=== PATIENT | female | born 1945 | race Caucasian/White ===

== ENCOUNTER → 2016-12-19 | Outpatient (CLI) | payer OTHER ==
[~2016-12-19] MED LIST: ADVINUNK; ASPEC81 PO; FAMO20TA11 PO; FISHOIL PO; FLUT50SP14 NAE; FSM70 PO; MONT1TAB3 PO; NSP/1000 PO; TOPI25TA10 PO; VALA500T60 PO; VYT1010 PO; [UNRECOGNIZED DRUG - OTHER] PO
== END | disposition home or self-care (01) ==
LOC: C.RDSM 13:00
PROVIDERS: ATTEND Physical Medicine & Rehabilitation Sports Medicine
DX: M79.671 Pain in right foot (principal)

== ENCOUNTER → 2017-01-27 | Outpatient (CLI) | payer OTHER ==
--- NOTE | 2017-01-27 13:07 | MAMMOGRAPHY REPORT ---
BILATERAL DIGITAL SCREENING MAMMOGRAM WITH CAD: 01/27/2017 CLINICAL HISTORY: Routine screening. Patient has no complaints. TECHNIQUE: Bilateral CC, MLO and repeat left CC views were obtained. Current study was also evaluate d with a Computer Aided Detection (CAD) system. COMPARISON: Comparison is made to exams dated: 01/16/2016 mammogram, 01/12/2015 mammogram, 01/03/2014 ann[facility] mogram, 12/31/2012 mammogram, 12/31/2011 mammogram, and 12/27/2010 mammogram - [facility]. BREAST COMPOSITION: There are scattered areas of fibroglandular density in both breasts. FINDINGS: The parenchymal pattern is similar to prior exams. No new suspicious mass, architectural d istortion or cluster of microcalcifications is seen. IMPRESSION: ACR BI-RADS CATEGORY 1: NEGATIVE There is no mammographic evidence of malignancy. A 1 year screening mammogram is recommended. The pa tient will receive written notification of the results. Approximately 10% of breast cancers are not detected with mammography. A negative mammographic report should not delay biopsy if a clinically suggestive mass is present. Jenifer Abarca M.D. ay/:01/27/2017 12:15:50 Technical Applications Scientist: Yvonne BHANDARI(Dash)(Donna)(BD), [facility] letter sent: Normal 1/2 BI-RADS Code: ACR BI-RADS Category 1: Negative
== END | disposition home or self-care (01) ==
LOC: C.MAMM 11:02
PROVIDERS: ATTEND Obstetrics & Gynecology
DX: Z12.31 Encounter for screening mammogram for malignant neoplasm of breast (principal)

== ENCOUNTER → 2017-03-10 | Outpatient (CLI) | payer OTHER | END | disposition home or self-care (01) | LOC: C.PAPS 16:16 | PROVIDERS: ATTEND Obstetrics & Gynecology | DX: Z12.4 Encounter for screening for malignant neoplasm of cervix (principal) ==

== ENCOUNTER → 2017-04-10 | Outpatient (CLI) | payer OTHER | END | disposition home or self-care (01) | LOC: C.RDSM 10:00 | PROVIDERS: ATTEND Physical Medicine & Rehabilitation Sports Medicine | DX: M79.671 Pain in right foot (principal); M19.071 Primary osteoarthritis, right ankle and foot ==

== ENCOUNTER → 2017-06-25 | Outpatient (CLI) | payer OTHER ==
--- NOTE | 2017-06-25 12:46 | DIAGNOSTIC IMAGING REPORT ---
CHEST 2 VIEWS ROUTINE CLINICAL HISTORY: 71 years-old Female presenting with BRONCHITIS, COUGH. TECHNIQUE: PA and lateral views of the chest were obtained. COMPARISON: 03/18/2009. FINDINGS: Atherosclerosis of aortic arch. Cardiac silhouette normal in size. Lungs and pleural spaces clear. Osseous structures normal. Upper abdomen normal. IMPRESSION: 1. No acute cardiopulmonary disease. Electronically signed by: Keyshawn Lobo M.D. 06/25/2017 12:45 PM Dictated Date/Time: 06/25/2017 12:43 PM
== END | disposition home or self-care (01) ==
LOC: C.RADBC 12:26
PROVIDERS: ATTEND Neuromusculoskeletal Medicine & OMM
DX: J40 Bronchitis, not specified as acute or chronic (principal); R05 Cough

== ENCOUNTER → 2018-01-28 | Outpatient (CLI) | payer OTHER ==
[~2018-01-28] MED LIST changes: -NSP/1000 PO; +[UNRECOGNIZED DRUG - CODE] PO
--- NOTE | 2018-01-28 16:07 | MAMMOGRAPHY REPORT ---
BILATERAL DIGITAL SCREENING MAMMOGRAM TOMOSYNTHESIS WITH CAD: 01/28/2018 CLINICAL HISTORY: Routine screening. Patient has no complaints. TECHNIQUE: The study was acquired using full field digital technology and interpreted from soft copy. Breast tomosynthesis in addition to standard 2D mammography was performed. Current study was also ev aluated with a Computer Aided Detection (CAD) system. COMPARISON: Comparison is made to exams dated: 01/27/2017 mammogram, 01/16/2016 mammogram, 01/12/2015 annetta mogram, 01/03/2014 mammogram, 12/31/2012 mammogram, and 12/31/2011 mammogram - [facility]. BREAST COMPOSITION: There are scattered areas of fibroglandular density in both breasts. FINDINGS: No suspicious masses, calcifications, or areas of architectural distortion are noted in either breast . There has been no significant interval change compared to prior exams. IMPRESSION: ACR BI-RADS CATEGORY 1: NEGATIVE There is no mammographic evidence of malignancy. A 1 year screening mammogram is recommended.( 019) The patient will receive written notification of the results. Some breast cancers are not detected with mammography. A negative mammographic report should not nikunj y biopsy if a clinically suggestive mass is present. Fernanda Villegas M.D. ah/:01/28/2018 13:09:36 Facility Specialist: RT Makeda(R)(M), [facility] letter sent: Normal 1/2 BI-RADS Code: ACR BI-RADS Category 1: Negative
== END | disposition home or self-care (01) ==
LOC: C.MAMM 11:02
PROVIDERS: ATTEND Obstetrics & Gynecology
DX: Z12.31 Encounter for screening mammogram for malignant neoplasm of breast (principal)

== ENCOUNTER → 2018-02-10 | Outpatient (CLI) | payer OTHER | END | disposition home or self-care (01) | LOC: C.LABSPEC 13:42 | PROVIDERS: ATTEND Internal Medicine Pulmonary Disease | DX: R05 Cough (principal); E78.5 Hyperlipidemia, unspecified; G45.9 Transient cerebral ischemic attack, unspecified ==

== ENCOUNTER 2025-04-27 13:30 | Observation (INO) ==
[2025-04-27 14:22] LABS: Hematocrit (blood only) 39.3 % (37.0-47.0); Hemoglobin 14.2 g/dl (12.0-16.0); Mean Corpuscular Hemoglobin 30.5 pg (25.0-34.0); Mean Corpuscular Volume 84.3 fL (80.0-100.0); Platelet Count 277 K/uL (130-400); RDW Standard Deviation 34.9 fL (36.4-46.3); Red Blood Count 4.66 M/uL (4.20-5.40); White Blood Count 5.81 K/ul (4.8-10.8)
--- NOTE | 2025-04-27 14:35 | XRay Report ---
XR chest 1V not portable CLINICAL HISTORY: stroke alert COMPARISON STUDY: 02/18/2019 FINDINGS: Heart size and pulmonary vasculature are normal. No consolidation or pleural effusion. No p neumothorax. IMPRESSION: No acute findings. ACT 112: Negative or not required by law. Electronically signed by: Chidi Mendoza M.D. 04/27/2025 2:34 PM
[2025-04-27 14:41] LABS: Alanine Aminotransferase 18.0 U/L (7-52); Albumin Globulin Ratio 1.5 (0.9-2); Albumin Level 4.4 gm/dl (3.4-5.0); Alkaline Phosphatase 82.0 U/L (34-104); Anion Gap 5.0 (3-11); Bilirubin,Total 0.4 mg/dl (0.2-1.0); Blood Urea Nitrogen 11.0 mg/dl (6-23); Calcium 9.8 mg/dl (8.6-10.3); Carbon Dioxide 29.0 mmol/L (21-32); Chloride 106.0 mmol/L (98-107); Creatinine Clr Calc Pharmacy 52.5 ml/min; Globulin 2.9 gm/dl (2.5-4.0); Glucose 120.0 mg/dl (70-99(Fasting)); Magnesium 2.0 mg/dl (1.7-2.4); Potassium 4.1 mmol/L (3.5-5.1); Sodium 140.0 mmol/L (136-145); Total Protein 7.3 gm/dl (6.0-8.3)
[2025-04-27 14:50] LABS: INR 1.1 (0.9-1.1); Partial Thromboplastin Time 26 Seconds (21-31); Prothrombin Time 11.5 Seconds (9.0-12.0)
[2025-04-27] MEDS: OPTIRAY 320 125ml IV ONE (15:37)
--- NOTE | 2025-04-27 15:54 | CT Scan Report ---
CT ANGIOGRAM OF THE NECK CLINICAL HISTORY: Strokelike symptoms. COMPARISON STUDY: CT of the neck dated 02/02/2020 TECHNIQUE: Following the IV administration of 115 of Optiray 320, CT angiogram of the neck was perfor med from the aortic arch to the skull base. Images are reviewed in the axial, sagittal, and coronal p lanes. 3-D MIPS images are created and assessed. IV contrast was administered without complication. A ll measurements were calculated based on NASCET criteria. A dose lowering technique was utilized adh ering to the principles of ALARA. CT DOSE: 905.87 mGy.cm FINDINGS: Thoracic aorta: Visualized portions of the thoracic aorta are normal in caliber. The aortic arch demo nstrates 4-vessel variant anatomy. 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 Right carotid arterial system: The right common carotid artery is widely patent, as are the right int ernal and external carotid arteries. Left carotid arterial system: The left common carotid artery is widely patent, as are the left manager internal al and external carotid arteries. Vertebral arteries: Widely patent bilaterally and codominant. Subclavian arteries: Widely patent bilaterally. Intracranial vasculature: The visualized intracranial vessels at the skull base are patent. Jugular veins: Patent bilaterally. Brain parenchyma: The visualized brain parenchyma the skull base is within normal limits. Lung apices: Partially visualized upper lobe lung parenchyma appears clear. Soft tissues: The visualized pharyngeal soft tissues are normal in appearance noting angiographic pha se technique. The oropharyngeal airway appears widely patent. The salivary and thyroid glands are nor mal in appearance. No cervical lymphadenopathy is seen. Skeletal structures: The skeletal structures are osteopenic. The visualized calvarium at the skull ba se appears intact. The imaged cervical spine is maintained noting multilevel spondylosis. Sinuses and mastoids: The visualized paranasal sinuses are clear. The mastoid air cells are well pneu matized. IMPRESSION: 1. Unremarkable CT angiogram of the neck. 2. An aberrant right subclavian artery is incidentally noted. ACT 112: Negative or not required by law. Electronically signed by: Joey Israel M.D. 04/27/2025 3:53 PM
--- NOTE | 2025-04-27 15:55 | CT Scan Report ---
CT SCAN OF THE BRAIN WITHOUT IV CONTRAST CLINICAL HISTORY: Left-sided facial weakness. Extremity weakness. COMPARISON STUDY: MRI of the brain May 05, 2023. Sinus CT February 29, 2024. Head CT February 16 2. TECHNIQUE: Unenhanced axial CT scan of the brain was performed from the vertex to the skull base. A dose lowering technique was utilized adhering to the principles of ALARA. FINDINGS: Brain parenchyma: No acute intracranial hemorrhage, midline shift or mass effect is present. Mclean-whi te matter differentiation is preserved. There are no extra-axial fluid collections. There are no find ings to suggest acute dural sinus thrombosis or acute territorial infarct. Mild white matter hypodens ity suggests small vessel disease. Ventricles, sulci, cisterns: There is no hydrocephalus. Ventricular system is stable. The basal ciste rns are patent. Calvarium: Unremarkable. Sinuses and mastoids: The visualized paranasal sinuses are clear. The mastoid air cells are well pneu matized. Orbits: The bony orbits are grossly intact. IMPRESSION: No acute intracranial findings. ACT 112: Negative or not required by law. Electronically signed by: Raoul Thomson M.D. 04/27/2025 3:54 PM
--- NOTE | 2025-04-27 16:09 | CT Scan Report ---
CTA ANGIOGRAPHY OF THE HEAD CLINICAL HISTORY: stroke like symptoms COMPARISON STUDY: MRA of the head February 18, 2012. TECHNIQUE: Helical axial images of the head were obtained following uneventful intravenous administr ation of 115 cc of Optiray. Sagittal and coronal reconstructions were viewed as well as maximal inten sity projections on an independent 3-D workstation. Automated exposure control was utilized for the study. A dose lowering technique was utilized adhering to the principles of ALARA. FINDINGS: Please note that the head CT will be reported separately. No acute intracranial hemorrhage, midline shift or mass effect is present. The bilateral M1, M2, A1 and A2 segments are patent. No int racranial aneurysm is identified. Posterior circulation is intact. No intracranial vessel occlusion i s identified. There is persistence of the left posterior cerebral artery. IMPRESSION: No large vessel occlusion. No intracranial aneurysm. ACT 112: Negative or not required by law. Electronically signed by: Raoul Thomson M.D. 04/27/2025 4:07 PM
--- NOTE | 2025-04-27 16:51 | Emergency Department Note ---
History of Present Illness General Chief complaint: Referred by Doctor Stated complaint: BRAIN SCAN Time Seen by Provider: 04/27/25 14:55 History of Present Illness Provider complaint: Strokelike symptoms 79-year-old female on Eliquis presents emergency department for strokelike symptoms. Patient reports that for the last 3 days she intermittently has been having neurological symptoms and is concern for TIA versus stroke. Patient reports she was having some facial droop on the left that was noticed by her hairdresser. She also reports left-sided headache. She reports difficulty walking. To the nursing staff she reported difficulty speaking yesterday. She reports no falls or traumas. Home Medications Medication Instructions Recorded Confirmed Type valacyclovir 500 mg tablet 500 mg PO DAILY PRN Cold Sores 01/01/21 04/20/25 History (Valtrex) apixaban 5 mg tablet (Eliquis) 5 mg PO BID 03/12/22 04/20/25 History flash glucose sensor (FreeStyle #1 ea 03/25/22 04/07/25 Rx Justen 2 Sensor kit) blood sugar diagnostic (HitMeUpTouch #100 ea 01/16/23 04/07/25 Rx Verio test strips) blood-glucose meter (HitMeUpTouch #1 ea 01/16/23 04/07/25 Rx Verio Flex Start kit) lancets 33 gauge (OneTouch Delica #100 ea 01/16/23 04/07/25 Rx Plus Lancet) propafenone 225 mg tablet 225 mg PO BID 12/20/24 04/20/25 History rosuvastatin 20 mg tablet 40 mg PO DAILY 12/20/24 04/20/25 History metformin 500 mg tablet 500 mg PO BID #180 tabs 12/29/24 04/20/25 Rx ipratropium bromide 17 2 puff inhalation Q6H #12.9 grams 02/28/25 04/20/25 Rx mcg/actuation HFA aerosol inhaler peg 3350-electrolytes 236 240 ml PO Q10M #4,000 mL 04/13/25 Rx gram-22.74 gram-6.74 gram-5.86 gram solution (GaviLyte-G) Prevagen 1 cap PO DAILY 04/20/25 04/20/25 History ascorbic acid 30 mg-collagen, 1 tab PO DAILY 04/20/25 04/20/25 History hydrolyzed 833.3 mg tablet (Collagen Skin Renewal) azelastine 137 mcg (0.1 %) nasal 1 spray intranasal DAILY PRN 04/20/25 04/20/25 History spray Allergies biotin 500 mcg capsule 500 mcg PO DAILY 04/20/25 04/20/25 History cetirizine 10 mg capsule (Zyrtec) 10 mg PO DAILY 04/20/25 04/20/25 History coenzyme Q10 100 mg capsule 100 mg PO BID 04/20/25 04/20/25 History Allergies Allergy/AdvReac Type Severity Reaction Status Date / Time alcohol Allergy Severe Red Wine Verified 04/20/25 13:48 -- throat closes Sulfa (Sulfonamide Allergy Severe edema Verified 04/20/25 13:48 Antibiotics) tonque atorvastatin [From Lipitor] Allergy Unknown Unknown Verified 04/20/25 13:48 topiramate Allergy Unknown Unknown Verified 04/20/25 13:48 metoprolol AdvReac Severe Suicidal Verified 04/20/25 13:48 Thoughts Past Med/Surg History Problem List (Updated 04/27/25 @ 16:59 by Dong Red MD) Brain TIA (Acute) Encounter for pre-operative examination Right leg pain Right hip pain Gait abnormality Constipation LLQ abdominal pain DANA positive Abnormal serum protein electrophoresis Abnormal immunoelectrophoresis Neuropathy Diabetes mellitus (Chronic) negative autoantibodies Palpitations PVC (premature ventricular contraction) (Chronic) PAF (paroxysmal atrial fibrillation) (Chronic) Osteoarthritis, multiple sites (Chronic) Osteoporosis (Chronic) Took Fosamax at least 10 years - stopped in 2008 Migraine headache (Chronic) Hypercholesteremia (Chronic) Asthma (Chronic) Medical History Hearing loss Bilateral Hearing Aids History of gastrointestinal hemorrhage as per patient with Dr Adler "he didn't perforate it, I just had blood clots" Adverse effect of anesthesia Slow to wake - low blood pressure > with previous endoscopy procedures with Dr Adler - possibly too much - "they have to reverse me out of the med" Migraine headache pt denies IBS (irritable bowel syndrome) Hypercholesteremia Diabetes mellitus, type 2 Oral Acid reflux Neuropathy pt denies Balance problem [facility] - no assistive device Osteoporosis PVC (premature ventricular contraction) [facility] Palpitations [facility] PAF (paroxysmal atrial fibrillation) Eliquis - [facility] Allergies Asthma Constipation reason for procedure 05/01/25 Left lower quadrant abdominal pain reason for procedure 05/01/25 Autoimmune hepatitis TIA (transient ischemic attack) "a couple" - 06/12/2001 and the others were just "Blips" - denies residuals - [facility] Neurology Surgical History History of bilateral cataract extraction History of eyelid surgery S/P appendectomy (~2012) Cataracts, bilateral duplicate - extraction Family History Grandmother (Maternal) Myocardial infarction Mother Heart disease Other Cancer Dementia Hypertension Denies family history of Ovarian cancer Prostate cancer Breast cancer Colorectal cancer Social History Smoking Status: Never smoker Second Hand Exposure: No; Do You Dip or Chew Tobacco: No; Hx Alcohol Use: Yes Alcohol type: wine Hx Substance Use: No Preferred Language: Korean Communication Ability: Effective Visual Impairment: No Limitations Hearing Ability: Use of Hearing Aid Director Of Institutional Sales Required: No Beliefs That Will Affect Care: None marital status: Current Living Situation: Spouse current occupational status: retired Feels Safe at Home: Yes Childhood Exposure to Second-Hand Smoke: Yes Dental Care, Regularly: Yes Physical Activity Frequency: 1-2 Times per Week Seatbelt Use: always Sunscreen Use: Yes Assistive Devices: Glasses and Hearing Aid - Bilateral Physical Exam Vital Signs Vital Signs - 24 hr 04/27/25 13:39 04/27/25 15:59 04/27/25 16:00 Temperature 36.8 C Temperature Source Oral Pulse Rate 64 Pulse Rate [Left Apical] 57 L Respiratory Rate 18 15 Respiratory Effort / Characteristics Non-Labored Spontaneous Non-Labored Spontaneous Respiratory Depth Normal Normal Respiratory Pattern Regular Regular Blood Pressure 123/62 Blood Pressure [Left Arm] 133/48 L Blood Pressure Mean 82 Blood Pressure Mean [Left Arm] 76 Pulse Oximetry 98 96 98 Oxygen Delivery Method Room Air Room Air Room Air Oxygen Flow Rate 0 Sepsis Recent Fever Within 48 Hours No Sepsis New/Unexplained Change in Mental Status N/A Sepsis Action Taken by Nursing No Action Required 04/27/25 16:21 04/27/25 16:30 Temperature Temperature Source Pulse Rate 57 L 63 Pulse Rate [Left Apical] Respiratory Rate 20 Respiratory Effort / Characteristics Respiratory Depth Respiratory Pattern Blood Pressure 142/61 H Blood Pressure [Left Arm] Blood Pressure Mean 88 Blood Pressure Mean [Left Arm] Pulse Oximetry 97 Oxygen Delivery Method Room Air Oxygen Flow Rate Sepsis Recent Fever Within 48 Hours Sepsis New/Unexplained Change in Mental Status Sepsis Action Taken by Nursing Physical Exam GENERAL: She is oriented to person, place, and time. She appears well-developed and well-nourished. She does not appear distressed. HENT: Exam performed. -Head: Normocephalic and atraumatic. -Right Ear: External ear normal. No mastoid erythema -Left Ear: External ear normal. No mastoid erythema -Mouth/Throat: The oropharynx is clear and moist. No trismus in the jaw. No dental abscesses or uvula swelling. No oropharyngeal exudate or tonsillar abscesses. EYES: Conjunctivae and EOM are normal. Pupils are equal, round, and reactive to light. Right eye exhibits no discharge. Left eye exhibits no discharge. No scleral icterus. NECK: Normal range of motion. Neck supple. No JVD present. No rigidity. No tracheal deviation and normal range of motion present. CV: Normal rate, regular rhythm, normal heart sounds and intact distal pulses. There is no peripheral edema. Palpable radial pulses bue. PULM/CHEST: Effort normal and breath sounds normal. No respiratory distress. No stridor. She has no wheezes. She has no rales. NEURO: She is alert and oriented to person, place, and time. She has normal strength. No cranial nerve deficit or sensory deficit. Coordination normal. GCS eye subscore is 4. GCS verbal subscore is 5. GCS motor subscore is 6. Cerebellar tests wnl. SKIN: Skin is warm and dry. She is not diaphoretic. PSYCH: She has a normal mood and affect. Behavior is normal. Judgment and thought content normal. Course Course 1455: The patient was evaluated in room C10. A complete history and physical exam was performed Cardiac monitoring: An order was placed for continuous cardiac monitoring. The monitor shows a rate of 60 with sinus rhythm interpreted by me No code stroke called as patient is not a TNKase candidate since she is on Eliquis and her symptoms have been on and off for the last 3 days. 1622: Vital signs stable. Labs and imaging are unremarkable. Patient having on and off strokelike symptoms for the last 3 days. On Eliquis. Patient reports that she is post to go off her Eliquis this weekend as she is getting ready for colonoscopy. Patient be treated with aspirin and be admitted for TIA to be evaluated by neurology and further imaging as deemed necessary. Patient mated to the [facility]. Administered Medications Discontinued Medications Ioversol (Optiray 320 125ml) 115 ml IV ONCE ONE Stop: 04/27/25 15:37 Last Admin: 04/27/25 15:37 Dose: 115 ml Documented By: ISAC Medical Decision Making Laboratory Data Attestation: I reviewed the patient's lab results. 04/27/25 14:05 04/27/25 14:05 Lab Results 04/27/25 Range/Units 14:05 WBC 5.81 (4.8-10.8) K/ul RBC 4.66 (4.20-5.40) M/uL Hgb 14.2 (12.0-16.0) g/dl Hct 39.3 (37.0-47.0) % MCV 84.3 (80.0-100.0) fL MCH 30.5 (25.0-34.0) pg MCHC 36.1 H (32.0-36.0) g/dL RDW Std Deviation 34.9 L (36.4-46.3) fL RDW Coeff of Julian 11.5 (11.5-14.5) % Plt Count 277 (130-400) K/uL MPV 10.1 (9.4-12.4) fL PT 11.5 (9.0-12.0) Seconds INR 1.1 (0.9-1.1) APTT 26 (21-31) Seconds PTT Ratio 1.0 Sodium 140 (136-145) mmol/L Potassium 4.1 (3.5-5.1) mmol/L Chloride 106 (98-107) mmol/L Carbon Dioxide 29 (21-32) mmol/L Anion Gap 5 (3-11) BUN 11 (6-23) mg/dl Creatinine 0.73 (0.6-1.2) mg/dl Est Cr Clr Drug Dosing 52.5 ml/min eGFR 84.12 BUN/Creatinine Ratio 15.1 (10-20) Glucose 120 H (70-99(Fasting)) mg/dl Calcium 9.8 (8.6-10.3) mg/dl Magnesium 2.0 (1.7-2.4) mg/dl Total Bilirubin 0.4 (0.2-1.0) mg/dl AST 21 (13-39) U/L ALT 18 (7-52) U/L Alkaline Phosphatase 82 (34-104) U/L Total Protein 7.3 (6.0-8.3) gm/dl Albumin 4.4 (3.4-5.0) gm/dl Globulin 2.9 (2.5-4.0) gm/dl Albumin/Globulin Ratio 1.5 (0.9-2) Imaging Data Attestation: I personally reviewed and interpreted this imaging study as follows: My Impression: Chest x-ray negative. Airway clear. No pneumothorax. No consolidation. No cardiomegaly or cephalization.. No free air under the diaphragm. No fractures of the skeletal structures. Radiologist's Impression: Chest X-Ray 04/27/25 13:45 XR chest 1V not portable CLINICAL HISTORY: stroke alert COMPARISON STUDY: 02/18/2019 FINDINGS: Heart size and pulmonary vasculature are normal. No consolidation or pleural effusion. No pneumothorax. IMPRESSION: No acute findings. ACT 112: Negative or not required by law. Electronically signed by: Chidi Mendoza M.D. 04/27/2025 2:[address] 04/27/25 14:56 CT SCAN OF THE BRAIN WITHOUT IV CONTRAST CLINICAL HISTORY: Left-sided facial weakness. Extremity weakness. COMPARISON STUDY: MRI of the brain May 05, 2023. Sinus CT February 29, 2024. Head CT February 17, 2012. TECHNIQUE: Unenhanced axial CT scan of the brain was performed from the vertex to the skull base. A dose lowering technique was utilized adhering to the principles of ALARA. FINDINGS: Brain parenchyma: No acute intracranial hemorrhage, midline shift or mass effect is present. Mclean-white matter differentiation is preserved. There are no extra- axial fluid collections. There are no findings to suggest acute dural sinus thrombosis or acute territorial infarct. Mild white matter hypodensity suggests small vessel disease. Ventricles, sulci, cisterns: There is no hydrocephalus. Ventricular system is stable. The basal cisterns are patent. Calvarium: Unremarkable. Sinuses and mastoids: The visualized paranasal sinuses are clear. The mastoid air cells are well pneumatized. Orbits: The bony orbits are grossly intact. IMPRESSION: No acute intracranial findings. ACT 112: Negative or not required by law. Electronically signed by: Raoul Thomson M.D. 04/27/2025 3:54 PM Head CTA 04/27/25 14:56 CTA ANGIOGRAPHY OF THE HEAD CLINICAL HISTORY: stroke like symptoms COMPARISON STUDY: MRA of the head February 18, 2012. TECHNIQUE: Helical axial images of the head were obtained following uneventful intravenous administration of 115 cc of Optiray. Sagittal and coronal reconstructions were viewed as well as maximal intensity projections on an independent 3-D workstation. Automated exposure control was utilized for the study. A dose lowering technique was utilized adhering to the principles of ALARA. FINDINGS: Please note that the head CT will be reported separately. No acute intracranial hemorrhage, midline shift or mass effect is present. The bilateral M1, M2, A1 and A2 segments are patent. No intracranial aneurysm is identified. Posterior circulation is intact. No intracranial vessel occlusion is identified. There is persistence of the left posterior cerebral artery. IMPRESSION: No large vessel occlusion. No intracranial aneurysm. ACT 112: Negative or not required by law. Electronically signed by: Raoul Thomson M.D. 04/27/2025 4:07 PM Neck CTA 04/27/25 14:56 CT ANGIOGRAM OF THE NECK CLINICAL HISTORY: Strokelike symptoms. COMPARISON STUDY: CT of the neck dated 02/02/2020 TECHNIQUE: Following the IV administration of 115 of Optiray 320, CT angiogram of the neck was performed from the aortic arch to the skull base. Images are reviewed in the axial, sagittal, and coronal planes. 3-D MIPS images are created and assessed. IV contrast was administered without complication. All measurements were calculated based on NASCET criteria. A dose lowering technique was utilized adhering to the principles of ALARA. CT DOSE: 905.87 mGy.cm FINDINGS: Thoracic aorta: Visualized portions of the thoracic aorta are normal in caliber. The aortic arch demonstrates 4-vessel variant anatomy. 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 Right carotid arterial system: The right common carotid artery is widely patent, as are the right internal and external carotid arteries. Left carotid arterial system: The left common carotid artery is widely patent, as are the left internal and external carotid arteries. Vertebral arteries: Widely patent bilaterally and codominant. Subclavian arteries: Widely patent bilaterally. Intracranial vasculature: The visualized intracranial vessels at the skull base are patent. Jugular veins: Patent bilaterally. Brain parenchyma: The visualized brain parenchyma the skull base is within normal limits. Lung apices: Partially visualized upper lobe lung parenchyma appears clear. Soft tissues: The visualized pharyngeal soft tissues are normal in appearance noting angiographic phase technique. The oropharyngeal airway appears widely patent. The salivary and thyroid glands are normal in appearance. No cervical lymphadenopathy is seen. Skeletal structures: The skeletal structures are osteopenic. The visualized calvarium at the skull base appears intact. The imaged cervical spine is maintained noting multilevel spondylosis. Sinuses and mastoids: The visualized paranasal sinuses are clear. The mastoid air cells are well pneumatized. IMPRESSION: 1. Unremarkable CT angiogram of the neck. 2. An aberrant right subclavian artery is incidentally noted. ACT 112: Negative or not required by law. Electronically signed by: Joey Israel M.D. 04/27/2025 3:53 PM ECG Data Attestation: I personally reviewed and interpreted this ECG as follows: Rate (beats per minute): 60 Rhythm: + normal sinus ECG Intervals/blocks: + Normal QRS, + Normal MT and + Normal QT-c ECG ST segments: + Normal ST segments MDM Narrative 1455: The patient was evaluated in room C10. A complete history and physical exam was performed Cardiac monitoring: An order was placed for continuous cardiac monitoring. The monitor shows a rate of 60 with sinus rhythm interpreted by me No code stroke called as patient is not a TNKase candidate since she is on Eliquis and her symptoms have been on and off for the last 3 days. 1622: Vital signs stable. Labs and imaging are unremarkable. Patient having on and off strokelike symptoms for the last 3 days. On Eliquis. Patient reports that she is post to go off her Eliquis this weekend as she is getting ready for colonoscopy. Patient be treated with aspirin and be admitted for TIA to be evaluated by neurology and further imaging as deemed necessary. Patient mated to the [facility] team. Impression & Plan Brain TIA Discharge Plan Visit Data Chief Complaint: Referred by Doctor Stated Complaint: BRAIN SCAN ED Provider: Dong Red Discharge Problem: Brain TIA Patient Disposition: Admitted As Inpatient Condition: Fair Forms Stand Alone Forms: My [facility] Prescriptions Prescriptions: No Action (DME) FreeStyle Justen 2 Sensor Kit See Rx Instructions .Route Qty: 1 11RF Rx Instructions: Change every 14 days metformin 500 mg tablet 500 mg PO BID Qty: 180 1RF Rx Instructions: take with a meal peg 3350-electrolytes [GaviLyte-G] 236-22.74-6.74 -5.86 gram recon soln 240 ml PO Q10M Qty: 4000 0RF Rx Instructions: until fecal effluent is clear valacyclovir [Valtrex] 500 mg tablet 500 mg PO DAILY PRN (Reason: Cold Sores) Eliquis 5 mg tablet 5 mg PO BID (DME) blood-glucose meter [HitMeUpTouch Verio Flex Start] Kit See Rx Instructions .Route Qty: 1 0RF Rx Instructions: As directed (DME) OneTouch Verio test strips Strip See Rx Instructions .Route Qty: 100 3RF Rx Instructions: Check blood sugars daily and as needed (DME) lancets [OneTouch Delica Plus Lancet] 33 gauge misc See Rx Instructions .Route Qty: 100 3RF Rx Instructions: Check blood sugars daily and as needed propafenone 225 mg tablet 225 mg PO BID rosuvastatin 20 mg tablet 40 mg PO DAILY ipratropium bromide 17 mcg/actuation HFA aerosol inhaler 2 puff inhalation Q6H Qty: 12.9 11RF azelastine [Astepro] 137 mcg (0.1 %) [place],Non-Aerosol 1 spray INTRANASAL DAILY PRN (Reason: Allergies) Rx Instructions: administer into each nostril biotin 500 mcg Capsule 500 mcg PO DAILY coenzyme Q10 100 mg Capsule 100 mg PO BID Rx Instructions: 1 cap QAM and 2 cap QPM Zyrtec 10 mg Capsule 10 mg PO DAILY Collagen Skin Renewal 30-833.3 mg Tablet 1 tab PO DAILY Prevagen 1 cap PO DAILY Referrals Referrals: Verena Thomson MD [Primary Care Provider] -
[2025-04-27] MEDS: ASPIRIN 81 MG CHEW PO STA (17:00)
[2025-04-27] MEDS ORDERED: ACETAMINOPHEN 325 MG TAB PO PRN (17:29)
[2025-04-27 18:09] LABS: Thyroid Stimulating Hormone 1.945 uIu/ml (0.300-4.500)
--- NOTE | 2025-04-27 18:16 | History & Physical Report ---
Date of Service April 27, 2025 Assessment & Plan (1) Brain TIA: Plan: As above in the History of Present Illness. History of Present Illness Chief Complaint: "I was walking outside my home on Thursday morning (04/25/2025, 9:00am) and on Thursday (04/26/2025, 9:00am), and on both occasions, my left leg felt a little weak. I did not fall down and there was no pain in my left leg. The weakness lasted about 1-2 minutes, and then went away by itself. Then on morning (04/27/2025, 9:00am), my left upper eyelid was droopy for 1 hour, and then it went away. I feel fine, but I decided to come to [facility] ER to get it checked out. I don't have any complaints at all since I came to [facility] ER today." Primary Care Provider: Verena Thomson MD 79 years old, right-hand dominant female with PMH of FULL CODE @ home, non-insulin dependent DM2 diagnosed ~2 years ago, with HbA1c 7.3% (12/20/2024, 2:53pm) on metformin 500mg PO bid, paroxysmal AFIB on propafenone 225mg PO bid and eliquis 5mg PO bid, and CVD s/p TIAs with no neurologic sequela(e), with last recorded fasting lipid panel (02/22/2025, 10:37am) with total cholesterol 121, LDL 53, HDL 54, triglyceride 68, on rosuvastatin 40mg PO qpm, who reports: "I was walking outside my home on Thursday (04/25/2025, 9:00am) and on Thursday (04/26/2025, 9:00am), and on both occasions, my left leg felt a little weak. I did not fall down and there was no pain in my left leg. The weakness lasted about 1-2 minutes, and then went away by itself. Then on morning (04/27/2025, 9:00am), my left upper eyelid was droopy for 1 hour, and then it went away. I feel fine, but I decided to come to [facility] ER to get it checked out. I don't have any complaints at all since I came to [facility] ER today." Patient denies antecedent/coincident fevers, chills, diaphoresis, cough, wheeze, sore throat, hemoptysis, pleurisy, SOB/REVELES, nausea, vomiting, diarrhea, abdominal pain, abdominal pain, pelvic pain, hematemesis, hematochezia, melena, hematuria, dysuria, frequency, urgency, headaches, dizziness, lightheadedness, visual changes, hearing changes, falls, syncope, trauma, travel history, sick contacts, or food/drug ingestions novel or new. All other review of systems are reported as negative by the patient on observation date 04/27/2025. In [facility] ER bed #C10, patient was afebrile @ 36.8 degrees Celsius, HR 63, RR 20, O2 sat 97% on room air, and BP 142/61 (04/27/2025, 4:30pm). Exam was noted for the absence of facial droop, dysarthria, or pronator drift. NIH stroke scale score = 0 points. Labs in [facility] ER bed #C10 included: WBC 5.81, Hb 14.2, MCV 84.3, MCHC 36.1, platelet 277 (04/27/2025, 2:05pm). INR 1.1 (04/27/2025, 2:05pm). Na 140, K 4.1, BUN 11, creatinine 0.73, glucose 120, Ca 9.8, AST 21, ALT 18, ALK PHOS 82, total bilirubin 0.4 (04/27/2025, 2:05pm). Additional testing in [facility] ER bed #C10 included: Portable CXR (04/27/2025, 1:45pm): No infiltrate, effusion, cardiomegaly, pulmonary vascular congestion, or pneumothorax (by my review). EKG (04/27/2025, 2:01pm): NSR @ 60, AK 156, QTC 402, TWI in III, no acute ST depressions/elevations or q waves (by my review). CT brain without IV contrast (04/27/2025, 2:56pm): No acute bleed, mass, or midline shift. CTA head (04/27/2025, 2:56pm): No large vessel occlusion. No intracranial aneurysm. CTA neck (04/27/2025, 2:56pm): 1. Unremarkable CT angiogram of the neck. 2. An aberrant right subclavian artery is incidentally noted. Patient was subsequently placed in OBSERVATION on the hospitalist service @ [facility] on 04/27/2025 with the following diagnosis: 1. TIA, R/O acute CVA. To address #1, patient was placed on telemetry, neuro checks q4h x 24 h, awaiting HbA1c (04/27/2025, 2:05pm), fasting lipid panel (04/28/2025, 4:44am), MRI brain without IV contrast (04/28/2025, 7:00am), TTE (04/28/2025, 7:00am), and PT/OT/Speech & Swallow Service evaluations in the 04/28/2025 am. In the interim, patient received ASA 324mg PO x 1 dose (04/27/2025, 5:00pm), while continuing her home-scheduled rosuvastatin 40mg PO qpm (04/27/2025, 5:41pm). Allergies Allergy/AdvReac Type Severity Reaction Status Date / Time alcohol Allergy Severe Red Wine Verified 04/20/25 13:48 -- throat closes Sulfa (Sulfonamide Allergy Severe edema Verified 04/20/25 13:48 Antibiotics) tonque atorvastatin [From Lipitor] Allergy Unknown Unknown Verified 04/20/25 13:48 topiramate Allergy Unknown Unknown Verified 04/20/25 13:48 metoprolol AdvReac Severe Suicidal Verified 04/20/25 13:48 Thoughts Home Medications Medication Instructions Recorded Confirmed Type valacyclovir 500 mg tablet 500 mg PO DAILY PRN Cold Sores 01/01/21 04/20/25 History (Valtrex) apixaban 5 mg tablet (Eliquis) 5 mg PO BID 03/12/22 04/20/25 History flash glucose sensor (FreeStyle #1 ea 03/25/22 04/07/25 Rx Justen 2 Sensor kit) blood sugar diagnostic (StretchTouch #100 ea 01/16/23 04/07/25 Rx Verio test strips) blood-glucose meter (OneTouch #1 ea 01/16/23 04/07/25 Rx Verio Flex Start kit) lancets 33 gauge (OneTouch Delica #100 ea 01/16/23 04/07/25 Rx Plus Lancet) propafenone 225 mg tablet 225 mg PO BID 12/20/24 04/20/25 History rosuvastatin 20 mg tablet 40 mg PO DAILY 12/20/24 04/20/25 History metformin 500 mg tablet 500 mg PO BID #180 tabs 12/29/24 04/20/25 Rx ipratropium bromide 17 2 puff inhalation Q6H #12.9 grams 02/28/25 04/20/25 Rx mcg/actuation HFA aerosol inhaler peg 3350-electrolytes 236 240 ml PO Q10M #4,000 mL 04/13/25 Rx gram-22.74 gram-6.74 gram-5.86 gram solution (GaviLyte-G) Prevagen 1 cap PO DAILY 04/20/25 04/20/25 History ascorbic acid 30 mg-collagen, 1 tab PO DAILY 04/20/25 04/20/25 History hydrolyzed 833.3 mg tablet (Collagen Skin Renewal) azelastine 137 mcg (0.1 %) nasal 1 spray intranasal DAILY PRN 04/20/25 04/20/25 History spray Allergies biotin 500 mcg capsule 500 mcg PO DAILY 04/20/25 04/20/25 History cetirizine 10 mg capsule (Zyrtec) 10 mg PO DAILY 04/20/25 04/20/25 History coenzyme Q10 100 mg capsule 100 mg PO BID 04/20/25 04/20/25 History Past Med/Surg History Problem List Brain TIA (Acute) Encounter for pre-operative examination Right leg pain Right hip pain Gait abnormality Constipation LLQ abdominal pain DANA positive Abnormal serum protein electrophoresis Abnormal immunoelectrophoresis Neuropathy Diabetes mellitus (Chronic) negative autoantibodies Palpitations PVC (premature ventricular contraction) (Chronic) PAF (paroxysmal atrial fibrillation) (Chronic) Osteoarthritis, multiple sites (Chronic) Osteoporosis (Chronic) Took Fosamax at least 10 years - stopped in 2008 Migraine headache (Chronic) Hypercholesteremia (Chronic) Asthma (Chronic) Medical History Hearing loss Bilateral Hearing Aids History of gastrointestinal hemorrhage as per patient with Dr Adler "he didn't perforate it, I just had blood clots" Adverse effect of anesthesia Slow to wake - low blood pressure > with previous endoscopy procedures with Dr Adler - possibly too much - "they have to reverse me out of the med" Migraine headache pt denies IBS (irritable bowel syndrome) Hypercholesteremia Diabetes mellitus, type 2 Oral Acid reflux Neuropathy pt denies Balance problem [facility] [place] Neurology - no assistive device Osteoporosis PVC (premature ventricular contraction) [facility] Cardiology Palpitations [facility] Cardiology PAF (paroxysmal atrial fibrillation) Eliquis - [facility] [place] Cardiology Allergies Asthma Constipation reason for procedure 05/01/25 Left lower quadrant abdominal pain reason for procedure 05/01/25 Autoimmune hepatitis TIA (transient ischemic attack) "a couple" - 06/12/2001 and the others were just "Blips" - denies residuals - [facility] [place] Neurology Surgical History History of bilateral cataract extraction History of eyelid surgery S/P appendectomy (~2012) Cataracts, bilateral duplicate - extraction Family History (Updated 04/27/25 @ 18:29 by Jas Cramer MD, PhD) Grandmother (Maternal) Myocardial infarction Mother , at 87 years of age from natural causes. Heart disease Father , at 65 years of age from intra-cerebral hemorrhage in the setting of HTN, not DM. No problems noted. Other Cancer Dementia Hypertension Denies family history of Ovarian cancer Prostate cancer Breast cancer Colorectal cancer Social History (Updated 04/27/25 @ 18:29 by Jas Cramer MD, PhD) Smoking Status: Never smoker Second Hand Exposure: No; Do You Dip or Chew Tobacco: No; Hx Alcohol Use: Yes Alcohol type: wine Hx Substance Use: No Preferred Language: Albanian Communication Ability: Effective Visual Impairment: No Limitations Hearing Ability: Use of Hearing Aid Diversity Manager Required: No Beliefs That Will Affect Care: None marital status: marital status details: No children living or . 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 Feels Safe at Home: Yes Childhood Exposure to Second-Hand Smoke: Yes Dental Care, Regularly: Yes Physical Activity Frequency: 1-2 Times per Week Seatbelt Use: always Sunscreen Use: Yes Assistive Devices: Glasses and Hearing Aid - Bilateral Review of Systems Constitutional: As above in the History of Present Illness. Physical Exam Constitutional: General: Comfortable, cooperative, coherent. Wide awake and alert. Not confused, lethargic, or obtunded. Patient speaks in complete, fluent, and articulate sentences without pause, interruption, cough, or wheeze. HEENT: NC/AT. EOMI. PERRL. No nystagmus, gaze paresis, anisocoria, miosis, mydriasis, chemosis, hyphema, scleral injection, conjunctivitis, or pterygium. No otorrhea. No rhinorrhea. Neck: Supple, no stridor, bruit, or goiter. Jugular venous pressure 5cm above the sternal angle of Lee, which is typically 5 cm above the right atrium. Lymph: No anterior/posterior cervical lymphadenopathy, supraclavicular/infraclavicular lymphadenopathy, axilla/epitrochlear/inguinal lymphadenopathy. Chest: Symmetric rise and fall with respirations. Non-tender to palpation. Heart: RRR, S1 and S2. No S3 or S4 summation gallop. No tripartite friction rub. No murmur. Lungs: Clear to auscultation and percussion. No audible expiratory wheeze, egophony, pectoriloquy, increase in tactile fremitus, or flatness/dullness to percussion at the bases. Abd: Soft, non-tender, non-distended. Bowel sounds auscultated in all 4 quadrants. No rebound, guarding, Somers's sign, or organomegaly. Ext: No clubbing, cyanosis, or edema. 2+ pedal pulses bilaterally. Skin: No decubitus ulcer, exanthem, or enanthem. Neuro: No tremors, tics, or myoclonus. DTR+. 5/5 motor strength in all 4 extremities, proximally and distally. No myoclonus, tremors, or tics. Urology: No daley catheter. No urethral discharge. Results & Data Results & Data Vital Signs (Past 12 Hours) Vital Signs Temp Pulse Pulse Resp BP BP Pulse Ox 04/27/25 17:30 57 L 19 150/55 H 99 04/27/25 17:15 65 17 95 04/27/25 16:30 63 20 142/61 H 97 04/27/25 16:21 57 L 04/27/25 16:00 98 04/27/25 15:59 57 L 15 133/48 L 96 04/27/25 13:39 36.8 C 64 18 123/62 98 O2 Del Method O2 Flow Rate 04/27/25 17:30 Room Air 04/27/25 17:15 Room Air 04/27/25 16:30 Room Air 04/27/25 16:21 04/27/25 16:00 Room Air 0 04/27/25 15:59 Room Air 04/27/25 13:39 Room Air Laboratory Results As above in the History of Present Illness. Diagnostic Findings As above in the History of Present Illness. Medications Administered As above in the History of Present Illness. Code Status & VTE Plan VTE Prophylaxis Plan VTE Prophylaxis will be ordered: Yes PG Care Time/CCT Total # of Minutes Spent Total Time Spent with Patient: Total time spent is greater than 50% in coordination of care (as documented) at patient's floor/unit and/or counseling patient: Coding Level of Care Code 17697 INT INP/OBS CARE 2/55MIN Diagnoses Brain TIA G45.9
[2025-04-27 18:23] LABS: Hemoglobin A1C 7.1 % (4.5-5.6)
[2025-04-27] MEDS: ROSUVASTATIN CALCIUM 20 MG TAB PO ONE (18:47)
--- NOTE | 2025-04-27 20:26 | Magnetic Resonance Report ---
MRI BRAIN WITHOUT CONTRAST TECHNIQUE: An MRI examination of the brain was performed utilizing sagittal and axial T1-weighted images as well as axial T2-weighted, FLAIR, gradient echo and diffusion-weighted images. INDICATION: Stroke COMPARISON: Brain MRI May 05, 2023 FINDINGS: The ventricular, sulcal and cisternal spaces are normal in caliber. There is no evidence of intracranial mass lesion, hydrocephalus, infarct, extra-axial fluid collection, restricted diffusion or parenchymal hemorrhage. Mild periventricular and subcortical white matter T2/FLAIR hyperintensities are not typically suggestive of chronic microvascular ischemic change. The cerebellar tonsils are normal in position. The pituitary gland is not enlarged. The major arterial vascular structures of the skull base are patent. No intraorbital soft tissue mass lesion is observed. Cataract surgeries bilaterally. the visualized paranasal sinuses are aerated. Mastoids are aerated. IMPRESSION: No acute intracranial process is identified. Chronic findings as above. Electronically signed by Elias Cabrera 04-27-2025 8:25 PM
[2025-04-27] MEDS ORDERED: HEPARIN SOD 5,000 UNIT/0.5 ML VIAL SQ SCH (21:00)
[2025-04-27] MEDS: APIXABAN 5 MG TABLET PO SCH (21:45)
[2025-04-27] MEDS: PROPAFENONE HCL 150 MG TABLET PO SCH (21:46)
[2025-04-27] MEDS ORDERED: GLUCAGON FOR INJ 1 MG VIAL SQ PRN (22:14)
[2025-04-27] MEDS ORDERED: CARBOHYDRATES FOR HYPOGLYCEMIA PO PRN (22:14)
[2025-04-27] MEDS ORDERED: DEXTROSE 50% 50 ML SYRINGE IV PRN (22:14)
[2025-04-27] MEDS ORDERED: GLUCOSE 10 TAB/TUBE PO PRN (22:14)
[2025-04-27] MEDS ORDERED: GLUCOSE 40% GEL 15 GM TUBE PO PRN (22:14)
[2025-04-28 06:19] LABS: Cholesterol 104.0 mg/dl (0-200); HDL Cholesterol 39.0 mg/dl; Triglycerides 56.0 mg/dl (0-150)
[2025-04-28 07:30] VITALS: O2SAT 97
[2025-04-28] MEDS: INSULIN ASPART PER UNIT CHARGE SC SCH (08:55)
[2025-04-28] MEDS: PNEUMOCOCCAL VACCINE (PCV20) 20-VAL CONJ-DIP CRM/PF 0.5 ML SYR IM ONE (08:58)
[2025-04-28] MEDS ORDERED: ROSUVASTATIN CALCIUM 20 MG TAB PO SCH (09:00)
[2025-04-28 11:30] VITALS: BP 108/71; PULSE 61; RESP 17; TEMP 97.9
--- NOTE | 2025-04-28 12:22 | Discharge Summary ---
Discharge Summary Date of Service April 28, 2025 Principal Dx & Hospital Course #1 = Principal Diagnosis (1) Brain TIA: Asymptomatic/RESOLVED, s/p R/O acute CVA. To address #1, patient was placed on telemetry with no arrythmias noted, neuro checks q4h x 24 h. cf., HbA1c 7.1% (04/27/2025, 2:05pm). cf., fasting lipid panel (04/28/2025, 5:30am): total cholesterol 104, LDL 54, HDL 39, TG 56. cf., MRI brain without IV contrast (04/28/2025, 7:00am): no acute bleed, mass, or midline shift. cf., TTE (04/28/2025, 7:00am): (report pending as of 04/28/2025, 12:25pm). cf., PT/OT/Speech & Swallow Service evaluations in the 04/28/2025 am. In the interim, patient received ASA 324mg PO x 1 dose (04/27/2025, 5:00pm), while continuing her home-scheduled rosuvastatin 40mg PO qpm (04/27/2025, 5:41pm) while in [facility]. Patient was subsequently discharged back to her home on 04/28/2025 with an electronic prescription for ASA 81mg PO daily, #30 tablets, no refills, transmitted to her [id number], [address] [place] [address], on 04/28/2025, prior to hospital discharge back to her home on 04/28/2025. Patient will continue to take her home-scheduled rosuvastatin 40mg PO qpm on hospital discharge back to her home on 04/28/2025. Patient was advised to follow up with her PCP Dr. Verena Thomson within 5-7 days of hospital discharge to discuss official TTE (04/28/2025, 7:00am) report. Patient reports that she will comply with this recommendation. Admission HPI Per Admitting Provider 79 years old, right-hand dominant female with PMH of FULL CODE @ home, non-insulin dependent DM2 diagnosed ~2 years ago, with HbA1c 7.3% (12/20/2024, 2:53pm) on metformin 500mg PO bid, paroxysmal AFIB on propafenone 225mg PO bid and eliquis 5mg PO bid, and CVD s/p TIAs with no neurologic sequela(e), with last recorded fasting lipid panel (02/22/2025, 10:37am) with total cholesterol 121, LDL 53, HDL 54, triglyceride 68, on rosuvastatin 40mg PO qpm, who reports: "I was walking outside my home on Thursday morning (04/25/2025, 9:00am) and on Thursday morning (04/26/2025, 9:00am), and on both occasions, my left leg felt a little weak. I did not fall down and there was no pain in my left leg. The weakness lasted about 1-2 minutes, and then went away by itself. Then on morning (04/27/2025, 9:00am), my left upper eyelid was droopy for 1 hour, and then it went away. I feel fine, but I decided to come to [facility] ER to get it checked out. I don't have any complaints at all since I came to [facility] ER today." Patient denies antecedent/coincident fevers, chills, diaphoresis, cough, wheeze, sore throat, hemoptysis, pleurisy, SOB/REVELES, nausea, vomiting, diarrhea, abdominal pain, abdominal pain, pelvic pain, hematemesis, hematochezia, melena, hematuria, dysuria, frequency, urgency, headaches, dizziness, lightheadedness, visual changes, hearing changes, falls, syncope, trauma, travel history, sick contacts, or food/drug ingestions novel or new. All other review of systems are reported as negative by the patient on observation date 04/27/2025. In [facility] ER bed #C10, patient was afebrile @ 36.8 degrees Celsius, HR 63, RR 20, O2 sat 97% on room air, and BP 142/61 (04/27/2025, 4:30pm). Exam was noted for the absence of facial droop, dysarthria, or pronator drift. NIH stroke scale score = 0 points. Labs in [facility] ER bed #C10 included: WBC 5.81, Hb 14.2, MCV 84.3, MCHC 36.1, platelet 277 (04/27/2025, 2:05pm). INR 1.1 (04/27/2025, 2:05pm). Na 140, K 4.1, BUN 11, creatinine 0.73, glucose 120, Ca 9.8, AST 21, ALT 18, ALK PHOS 82, total bilirubin 0.4 (04/27/2025, 2:05pm). Additional testing in [facility] ER bed #C10 included: Portable CXR (04/27/2025, 1:45pm): No infiltrate, effusion, cardiomegaly, pulmonary vascular congestion, or pneumothorax (by my review). EKG (04/27/2025, 2:01pm): NSR @ 60, [place] 156, QTC 402, TWI in III, no acute ST depressions/elevations or q waves (by my review). CT brain without IV contrast (04/27/2025, 2:56pm): No acute bleed, mass, or midline shift. CTA head (04/27/2025, 2:56pm): No large vessel occlusion. No intracranial aneurysm. CTA neck (04/27/2025, 2:56pm): 1. Unremarkable CT angiogram of the neck. 2. An aberrant right subclavian artery is incidentally noted. Patient was subsequently placed in OBSERVATION on the hospitalist service @ [facility] on 04/27/2025 with the following diagnosis: 1. TIA, R/O acute CVA. To address #1, patient was placed on telemetry, neuro checks q4h x 24 h, awaiting HbA1c (04/27/2025, 2:05pm), fasting lipid panel (04/28/2025, 4:44am), MRI brain without IV contrast (04/28/2025, 7:00am), TTE (04/28/2025, 7:00am), and PT/OT/Speech & Swallow Service evaluations in the 04/28/2025 am. In the interim, patient received ASA 324mg PO x 1 dose (04/27/2025, 5:00pm), while continuing her home-scheduled rosuvastatin 40mg PO qpm (04/27/2025, 5:41pm). Discharge Exam Constitutional General: Comfortable, cooperative, coherent. Wide awake and alert. Not confused, lethargic, or obtunded. Patient speaks in complete, fluent, and articulate sentences without pause, interruption, cough, or wheeze. HEENT: NC/AT. EOMI. PERRL. No nystagmus, gaze paresis, anisocoria, miosis, mydriasis, chemosis, hyphema, scleral injection, conjunctivitis, or pterygium. No otorrhea. No rhinorrhea. Neck: Supple, no stridor, bruit, or goiter. Jugular venous pressure 5cm above the sternal angle of Lee, which is typically 5 cm above the right atrium. Lymph: No anterior/posterior cervical lymphadenopathy, supraclavicular/infraclavicular lymphadenopathy, axilla/epitrochlear/inguinal lymphadenopathy. Chest: Symmetric rise and fall with respirations. Non-tender to palpation. Heart: RRR, S1 and S2. No S3 or S4 summation gallop. No tripartite friction rub. No murmur. Lungs: Clear to auscultation and percussion. No audible expiratory wheeze, egophony, pectoriloquy, increase in tactile fremitus, or flatness/dullness to percussion at the bases. Abd: Soft, non-tender, non-distended. Bowel sounds auscultated in all 4 quadrants. No rebound, guarding, Somers's sign, or organomegaly. Ext: No clubbing, cyanosis, or edema. 2+ pedal pulses bilaterally. Skin: No decubitus ulcer, exanthem, or enanthem. Neuro: No tremors, tics, or myoclonus. DTR+. 5/5 motor strength in all 4 extremities, proximally and distally. No myoclonus, tremors, or tics. Urology: No daley catheter. No urethral discharge. Discharge Plan Discharge Items Patient Disposition: Home - Self-Care Reason For Visit: TIA, R/O ACUTE CVA Discharge Diagnosis: TIA, R/O acute CVA. Condition on Discharge: Fair Activity: Resume your previous activity Lifting: Gradually increase as tolerated Bathing: No limitations Sexual Activity: When tolerated Exercise/Sports: Gradually increase as tolerated Driving/Machine Use: No limitations Weightbearing: Full weightbearing Non-emergency contact: Primary Care Provider Call non-emergency contact if: you have any medication questions Follow-up/Referrals: Verena Thomson MD [Primary Care Provider] - Diet: Carb Consistent or DM2 and Heart Healthy Addtl Attending Provider Instructions: See your PCP Dr. Verena Thomson within 5-7 days of hospital discharge for routine follow up visit and to discuss official TTE report (04/28/2025), pending as of 04/28/2025, 12:25pm. Pending Studies at Discharge: Yes Studies:: See your PCP Dr. Verena Thomson within 5-7 days of hospital discharge for routine follow up visit and to discuss official TTE report (04/28/2025), pending as of 04/28/2025, 12:25pm. Stand-Alone Forms: My [facility] [place], Smoking Cessation Medications and DC Order Prescriptions: New aspirin 81 mg capsule 81 mg PO DAILY Qty: 30 0RF Continued (DME) FreeStyle Justen 2 Sensor Kit See Rx Instructions .Route Qty: 1 11RF Rx Instructions: Change every 14 days peg 3350-electrolytes [GaviLyte-G] 236-22.74-6.74 -5.86 gram recon soln 240 ml PO Q10M Qty: 4000 0RF Rx Instructions: until fecal effluent is clear valacyclovir [Valtrex] 500 mg tablet 500 mg PO DAILY PRN (Reason: Cold Sores) Eliquis 5 mg tablet 5 mg PO BID (DME) blood-glucose meter [OneTouch Verio Flex Start] Kit See Rx Instructions .Route Qty: 1 0RF Rx Instructions: As directed (DME) OneTouch Verio test strips Strip See Rx Instructions .Route Qty: 100 3RF Rx Instructions: Check blood sugars daily and as needed (DME) lancets [OneTouch Delica Plus Lancet] 33 gauge misc See Rx Instructions .Route Qty: 100 3RF Rx Instructions: Check blood sugars daily and as needed propafenone 225 mg tablet 225 mg PO BID rosuvastatin 20 mg tablet 40 mg PO DAILY azelastine 137 mcg (0.1 %) [place],Non-Aerosol 1 spray INTRANASAL DAILY PRN (Reason: Allergies) Rx Instructions: administer into each nostril biotin 500 mcg Capsule 500 mcg PO DAILY coenzyme Q10 100 mg Capsule 100 mg PO BID Rx Instructions: 1 cap QAM and 2 cap QPM Zyrtec 10 mg Capsule 10 mg PO DAILY Collagen Skin Renewal 30-833.3 mg Tablet 1 tab PO DAILY Prevagen 1 cap PO DAILY Held metformin 500 mg tablet 500 mg PO BID Qty: 180 1RF Hold Instructions: Resume on 04/30/25. Hold OFF metformin 500mg PO bid until 04/30/2025, 2:56pm, to allow 72 hours to pass from the time that you were exposed to IV contrast on 04/27/2025, 2:56pm, during performance of CTA head/neck @ [facility], in order to avoid the risk of developing post-IV contrast nephropathy if you were to resume metformin 500mg PO bid before 04/30/2025, 2:56pm. You can restart metformin 500mg PO bid on 04/30/2025, 2:56pm Rx Instructions: take with a meal Discontinued ipratropium bromide 17 mcg/actuation HFA aerosol inhaler 2 puff inhalation Q6H Qty: 12.9 11RF Discharge Orders: Discharge Order (Routine); Ordered 04/28/25 Ordered By: Jas Porras/Other Patient Handouts: Managing Type 2 Diabetes Admission Data Admit Date/Time: 04/27/25 17:29 Attending Provider: Jas Cramer Admit Provider: Jas Cramer Primary Care Provider: Verena Thomson Other Providers: Terrence Patterson Hospital Stay Data Consultations 04/27/25 16:22 ED Decision to Admit Stat Diagnostic Imagining Performed 04/27/25 14:56 CT angio head w con Stat CT angio neck with con Stat CT head/brain wo con Stat 04/27/25 17:31 MRI Brain [MR brain wo con] Stat Pending Results Patient Have Any Pending Studies at Discharge: Yes Discharge Instructions Given to Patient (Per Discharging Provider) See your PCP Dr. Verena Thomson within 5-7 days of hospital discharge for routine follow up visit and to discuss official TTE report (04/28/2025), pending as of 04/28/2025, 12:25pm. Total Time Total Time Spent Total Time Spent (In Minutes): 35 minutes. Of this time period, 19 minutes were spent in coordinating patient's discharge. Coding Level of Care Code 12682 INP/OBS DISCH >30 MIN Diagnoses Brain TIA G45.9
--- NOTE | 2025-04-29 10:55 | XCELERA ---
[id number]
--- NOTE | 2025-05-01 00:28 | Electrocardiogram Report ---
Test Reason : Blood Pressure : */* mmHG Vent. Rate : 60 BPM Atrial Rate : 60 BPM P-R Int : 156 ms QRS Dur : 80 ms QT Int : 402 ms P-R-T Axes : 41 -3 26 degrees QTcB Int : 402 ms Normal sinus rhythm Nonspecific ST abnormality Abnormal ECG When compared with ECG of 17-Mar-2023 10:14, (unconfirmed) T wave inversion now evident in Anterior leads Confirmed by García Spaulding ([id number]) on 05/01/2025 12:28:16 AM Referred By: Confirmed By: García Spaulding
== END 2025-04-28 13:00 | disposition home or self-care (01) ==
LOC: 2N 13:30 → ED 13:30 → 2N 20:32